=== PATIENT | female | born 1960 | race Caucasian/White ===

== ENCOUNTER → 2016-12-02 | Outpatient (CLI) | payer BC ==
[~2016-12-02] MED LIST: LEVO500T16 PO
--- NOTE | 2016-12-02 11:25 | Diagnostic Imaging Report ---
PROCEDURE: US PELVIC (NON OB) TECHNIQUE: Multiple real-time grayscale images were obtained over the pelvis in various projections transabdominally. INDICATION: Dysmenorrhea. FINDINGS: The uterus measures 9.4 x 5 x 5.9 cm. The endometrial thickness is 4 mm. There are no definite discrete myometrial or endometrial masses. Both ovaries are normal in size and morphology demonstrating normal blood flow. There is a 1.9 cm right ovarian cyst. There are no other adnexal masses. There is no free pelvic fluid. IMPRESSION: There is a 1.9 cm right ovarian cyst; otherwise, unremarkable pelvic ultrasound. Dictated by: Dictated on workstation # [id number]
== END ==
LOC: RAD 09:58
PROVIDERS: ATTEND Family Medicine
DX: N94.4 Primary dysmenorrhea (principal); N83.291 Other ovarian cyst, right side
CPT/HCPCS: 76856